=== PATIENT | female | born 1990 | race Caucasian/White ===

== ENCOUNTER 2017-04-22 19:59 | Emergency (ER) | payer OTHER ==
--- NOTE | 2017-04-22 21:04 | PD ---
HPI Chief Complaint Cramping now resolved Date Seen: Apr 22, 2017 Time Seen: 20:59 Travel History International Travel<30 Days: No Contact w/Intl Traveler<30Days: No Known Affected Area: No History of Present Illness HPI 26-year-old female who is at 21 weeks gestation who comes in complaining of cramping is been apparent off and on for the past 2 weeks. Symptoms are not present at this time. She does not initiated care as yet as she was considering doing this baby up for adoption but has decided to keep this child. Patient admits to polysubstance abuse using oral pain relievers, marijuana, and some IV medications. She states that she has not used any in a few days and is not experiencing any withdrawal symptoms. She does complain of mild anxiety that was present prior to the as well. Para: 3 : 3 History Past Medical History Narrative Medical Hepatitis C positive Medical History: Denies Significant Hx Obstetric History Obstetric History Spotting vaginal delivery section for twins Past Surgical History Narrative Surgical section Family History Family History: Negative Social History Alcohol Use: No Tobacco Use: No Substance Abuse: No Review of Systems Except as stated in HPI: all other systems reviewed are Neg Physical Exam Narrative GENERAL: Well-nourished, well-developed patient. SKIN: Warm and dry. HEAD: Normocephalic and atraumatic. EYES: No scleral icterus. No injection or drainage. ENT: No nasal drainage noted. Mucous membranes pink. Airway patent. NECK: Supple, trachea midline. No JVD. CARDIOVASCULAR: Regular rate and rhythm without murmurs, gallops, or rubs. RESPIRATORY: Breath sounds equal bilaterally. No accessory muscle use. ABDOMEN/GI: Abdomen soft, non-tender, bowel sounds present, no rebound, no guarding Gravid to [-20] weeks size Fundal Height: [-] GENITOURINARY: External Genitalia: intact and normal in appearance BUS glands: [Normal-] speculum examination reveals a closed cervix, no discharge, no bleeding Cervix: [Posterior-] Dilatation: [Closed-] Effacement: [-] Station: [-High] Presentation: [-] Membranes: [intact] Uterine Contractions: [-Absent] FHT's: 150 by Doppler Category: [-] Baseline: [-] Reactive: [-] Variability: [-] Decels: [-] EXTREMITIES: No cyanosis or edema. BACK: Nontender without obvious deformity. No CVA tenderness. NEUROLOGICAL: Awake and alert. Motor and sensory grossly within normal limits. Five out of 5 muscle strength in all muscle groups. Normal speech. Data Data Vital Signs Reviewed: Yes [facility] Medical Record Reviewed: Yes Plan 26-year-old P3 who is at 21 weeks gestation with a history of cramping none present at this time No care patient was given options for obstetrical providers Will order a urine drug screen Patient has declined blood work Diagnosis Diagnosis: Primary Impression: 21 weeks gestation of Additional Impressions: Hepatitis C Substance abuse affecting in second trimester, antepartum Disposition: 01 DISCHARGE HOME Nati Herndon MD Apr 22, 2017 21:04
[2017-04-22 21:42] LABS: AMPHETAMINE, URINE NEG (NEG); BARBITURATES, URINE NEG (NEG); COCAINE, URINE POS (NEG)
== END 2017-04-22 21:30 | disposition home or self-care (01) ==
LOC: HOBED 19:59
DX: O99.322 Drug use complicating pregnancy, second trimester (principal); O26.899 Other specified pregnancy related conditions, unspecified trimester; B19.20 Unspecified viral hepatitis C without hepatic coma; Z3A.21 21 weeks gestation of pregnancy
CPT/HCPCS: 80307; 99282

== ENCOUNTER 2017-05-18 13:08 | Emergency (ER) | payer OTHER ==
[~2017-05-18 13:08] MED LIST: METH40TA PO; OB CCAP2 PO; PYRE1SHA4 TOPICAL
--- NOTE | 2017-05-18 13:44 | PD ---
HPI Chief Complaint foot swelling Date Seen: May 18, 2017 Time Seen: 13:46 Travel History International Travel<30 Days: No Contact w/Intl Traveler<30Days: No History of Present Illness HPI 27 y/o at 22 weeks presents with leg swelling. Patient states that she has 20 or legs ankles and feet for the last week. States they've been getting worse. States they're a little bit painful at the ankles. Denies any vaginal bleeding, loss of fluid, contractions. Endorses movement. Patient sees careful not, but was late to care because planning on an originally. Patient denies any headache, changes in vision, right upper quadrant pain. Denies any problems with this . No history of high blood pressure, states her pressure is usually low. Denies any chest pain, shortness of breath, dysuria. Para: 2 : 3 History Past Medical History Narrative Medical Hepatitis C Obstetric History Obstetric History 1st - 2nd-twins C/S Past Surgical History Narrative Surgical Tonsillectomy Family History Family History: Negative Social History Alcohol Use: No Tobacco Use: Yes (2 PPD) Substance Abuse: No (hx of drug use, on Methadone) Allergies-Medications (Allergen,Severity, Reaction): Coded Allergies: No Known Allergies (Unverified , 05/13/17) Home Meds Active Scripts Prenat Vit W/ Iron Carbonyl-Fe (Ob Complete/Dha 30-10-1-200 mg)1 Cap Cap1 Bottle PO DAILY #90 BOTTLE Prov:Jamie Scott MD 05/13/17 Pyrethrins Shampoo (Rid Lice Killing Shampoo)1 Sham1 Applic TOPICAL DIRECTED #1 BOTTLE Ref 0 Prov:Jamie Scott MD 05/13/17 Reported Medications Methadone 40 Mg Tab90 Mg PO DAILY Ref 0 05/13/17 Review of Systems General / Constitutional: Weight Gain, No: Fever, Weight Loss Eyes: No: Diploplia, Blurred Vision HENT: No: Headaches, Vertigo Cardiovascular: No: Irregular Rhythm, Chest Pain or Discomfort, Palpitations Respiratory: No: Cough, Short of Breath Gastrointestinal: No: Nausea, Vomiting, Diarrhea, Abdominal Pain Genitourinary: No: Urgency, Frequency, Dysuria Musculoskeletal: Edema, No: Limited ROM, Weakness Skin: No Rash, No Itching Neurologic: No: Weakness, Dizziness Psychiatric: No: Anxiety, Depression Endocrine: No: Heat Intolerance, Cold Intolerance Physical Exam Narrative GENERAL: Well-nourished, well-developed patient. SKIN: Warm and dry. HEAD: Normocephalic and atraumatic. EYES: No scleral icterus. No injection or drainage. ENT: No nasal drainage noted. Mucous membranes pink. Airway patent. NECK: Supple, trachea midline. No JVD. CARDIOVASCULAR: Regular rate and rhythm without murmurs, gallops, or rubs. RESPIRATORY: Breath sounds equal bilaterally. No accessory muscle use. ABDOMEN/GI: Abdomen soft, non-tender, bowel sounds present, no rebound, no guarding Gravid to 22 weeks size FHT's: Category: 1 Baseline: 140 Reactive: yes Variability: moderate Decels: none EXTREMITIES: No cyanosis. 3+ edema up to mid-calf BACK: Nontender without obvious deformity. No CVA tenderness. NEUROLOGICAL: Awake and alert. Motor and sensory grossly within normal limits. Five out of 5 muscle strength in all muscle groups. Normal speech. Data Data Vital Signs Reviewed: Yes [facility] Medical Record Reviewed: Yes Interpretation(s) 27 y/o at 22 weeks presents with edema. Otherwise, asymptomatic Category 1 FHT Vitals stable, BP 88/47. IUP with lower extremity swelling. No signs of pre-eclampsia, vitals stable. D/c in stable condition. Encourage keeping legs elevated and bed rest. Decrease salt intake. F/u with [facility] Diagnosis Diagnosis: Primary Impression: 22 weeks gestation of Additional Impression: Edema during Qualified Code: O12.02 - Edema during , second trimester Disposition: 01 DISCHARGE HOME Condition: Stable Patient Instructions: General Instructions, Early Labor Signs (ED) Terrence Bernal MD R1 May 18, 2017 13:44
[2017-05-18 14:03] VITALS: TEMP 98
--- NOTE | 2017-05-18 15:03 | PD ---
History of Present Illness Date Seen: May 18, 2017 History of Present Illness Patient 27-year-old white female previous at 25 weeks who [facility]. She presents planning of swelling in her ankles and lower extremities. This is been going on for a few days. Patient states she walks a lot. No bleeding or leakage of fluid heart tones within normal limits and she is having an occasional contraction. Patient's cervix is closed and posterior. Exam extremities no showed 2+ edema in the ankles and some pitting edema in the pretibial area. Patient's blood pressure is within normal limits Impressions edema Plan is for the patient to be at bedrest for several days proper feet up higher than her body, cut out salt sodium, drink plenty of fluids, Harpal Glover II, MD May 18, 2017 15:03
== END 2017-05-18 15:28 | disposition home or self-care (01) ==
LOC: HOBED 13:08
DX: O12.02 Gestational edema, second trimester (principal); Z3A.22 22 weeks gestation of pregnancy
CPT/HCPCS: 99281

== ENCOUNTER → 2017-05-29 | Outpatient (CLI) | payer OTHER | LOC: HPND 12:40 | PROVIDERS: ATTEND Obstetrics & Gynecology | DX: O99.322 Drug use complicating pregnancy, second trimester (principal); O09.32 Supervision of pregnancy with insufficient antenatal care, second trimester; O98.512 Other viral diseases complicating pregnancy, second trimester; Z3A.27 27 weeks gestation of pregnancy | CPT/HCPCS: 76811; 76825; 76827; 93325 ==

== ENCOUNTER → 2017-06-24 | Outpatient (CLI) | payer OTHER ==
[~2017-06-24] MED LIST changes: -PYRE1SHA4 TOPICAL
== END ==
LOC: HPND 09:43
PROVIDERS: ATTEND Obstetrics & Gynecology
DX: O99.322 Drug use complicating pregnancy, second trimester (principal); O09.32 Supervision of pregnancy with insufficient antenatal care, second trimester; O98.512 Other viral diseases complicating pregnancy, second trimester
CPT/HCPCS: 76816